=== PATIENT | female | born 1975 | race Caucasian/White ===

== ENCOUNTER 2020-12-05 09:59 | Emergency (ER) | payer BC, SELFPAY ==
[2020-12-05 10:11] VITALS: BP 142/92; PULSE 71; RESP 16; TEMP 36.4; O2SAT 99
[2020-12-05 10:25] VITALS: BP 142/92; PULSE 71; RESP 16; TEMP 36.4; O2SAT 99
--- NOTE | 2020-12-05 11:28 | ED.SKABFB ---
HPI - Skin/Abscess/Foreign Bdy General Chief complaint: Skin/Abscess/Foreign Body Stated complaint: rash Time Seen by Provider: 12/05/20 11:20 Source: patient and RN notes reviewed Mode of arrival: ambulatory Limitations: no limitations History of Present Illness HPI narrative: Patient presents today complaining of a rash to her abdomen, groin, anterior legs and left arm x1 week. developed rash 2 weeks ago after camping. Patient's rash is significantly worsened and developed on her legs over the past 2 days. Rash itches profusely. Patient has tried some exco-snc-[id number] topical treatments without relief. MD complaint: rash Related Data Home Medications Medication Instructions Recorded Confirmed Claritin 12/05/20 Prilosec 12/05/20 Wellbutrin 12/05/20 cariprazine [Vraylar] mg 12/05/20 cholecalciferol (vitamin D3) 12/05/20 hydrochlorothiazide 12/05/20 levothyroxine 12/05/20 lorazepam 12/05/20 Allergies Allergy/AdvReac Type Severity Reaction Status Date / Time doxycycline Allergy Unknown Verified 05/30/15 15:57 duloxetine Allergy Unknown Verified 04/04/11 10:18 tetracycline Allergy Unknown PROJECTILE Verified 06/13/15 08:28 VOMITING venlafaxine Allergy Unknown Verified 05/30/15 15:57 Review of Systems Review of Systems: CONSTITUTIONAL: Denies body aches, fever, chills, or sweats. EYES: Denies visual changes, redness, or discharge. ENT: Denies rhinorrhea, congestion, sore throat, or otalgia. CARDIOVASCULAR: Denies chest pain, palpitations, or edema. RESPIRATORY: Denies cough or dyspnea. GASTROINTESTINAL: Denies abdominal pain, nausea, vomiting, or diarrhea. GENITOURINARY: Denies dysuria or hematuria. SKIN: Denies wounds.+ Pruritic rash MUSCULOSKELETAL: Denies back pain, joint pain, or myalgia. NEUROLOGIC: Denies headache, numbness, tingling, or weakness. PSYCH: Denies depression or anxiety. [facility] Past Medical History Medical History (Updated 12/07/20 @ 09:16 by Arminda Daly, JUAN, IVÁN) Depression Hypertension Hypothyroidism Family History Family History Father Family history of obesity Asthma Family history of elevated blood lipids Family history of alcoholism Family history of coronary artery disease Family history of lung disease Acute myocardial infarction Mother Family history of osteoporosis Family history of mental disorder Depression Hypertension Sibling Depression Grandparent Cerebrovascular accident Family history of lung disease Other Carcinoma of colon Family history of arthritis Family history of heart disease in male family member before age 55 Family history of malignant neoplasm Social History Social History Smoking status: Former smoker Second hand tobacco smoke exposure: Yes Smoking end date: 03/23/10 Alcohol intake: never Comments At time of signature, I have reviewed and agree with nursing past medical, surgical, social and family history unless otherwise noted. Please see nursing chart for further information. There is no relevant family history pertinent to the presenting complaint Exam Narrative: GENERAL: Well-appearing, well-nourished, and in no acute distress. HEAD: Normocephalic, atraumatic. EYES: EOMI. No redness or drainage. Conjunctivae normal. ENT: Mucous membranes pink and moist. NECK: Normal AROM. CHEST: No respiratory distress. EXTREMITIES: Normal range of motion. No edema. SKIN: Warm, dry. Capillary refill normal. Normal skin turgor. + Diffuse pinpoint scabbed rash over the bilateral thighs, groin, lower abdomen, left forearm NEURO: No focal deficits. Alert and oriented x3. Gait steady. PSYCH: Normal affect. No signs of depression or anxiety. Course Vital Signs Vital signs: Vital Signs Temperature 97.6 F 12/05/20 10:11 Pulse Rate 71 12/05/20 10:11 Respi
== END 2020-12-05 11:40 | disposition home or self-care (01) ==
PROVIDERS: Emergency Provider Nurse Practitioner; PCP Physician Assistant
DX: L30.9 Dermatitis, unspecified (principal); I10 Essential (primary) hypertension; E03.9 Hypothyroidism, unspecified; Z87.891 Personal history of nicotine dependence
CPT/HCPCS: 99213; G0463